=== PATIENT | female | born 1995 | race African-American/Black ===

== ENCOUNTER 2022-11-18 12:15 | Inpatient (IN) | payer OTHER ==
[2022-11-18] MEDS: ELECTROLYTE-148 SOLN 1,000 ML IV SCH ×2 (12:25→17:15)
[2022-11-18] MEDS: OXYTOCIN 30 UNITS in 0.9% NS 30 UNIT/500 ML INFUS.BAG IVPB SCH (13:30)
[2022-11-18] MEDS ORDERED: OXYTOCIN 30 UNITS in 0.9% NS 30 UNIT/500 ML INFUS.BAG IVPB ONE (13:30)
[2022-11-18 13:46] VITALS: BMI 34.0
[2022-11-18 13:54] LABS: BASO % 0.4 % (0-2.0); EOS % 0.3 % (0-4.5); HEMATOCRIT 36.2 % (32.4-45.2); HEMOGLOBIN 11.9 GM/dL (10.7-15.3); LYMPH % 11.4 % (8-40); MCH 29.4 pg (25.7-33.7); MCHC 32.9 g/dl (32.0-36.0); MEAN CELL VOLUME 89.4 fl (80-96); MEAN PLT VOLUME 10.7 fl (7.5-11.1); MONO % 7.1 % (3.8-10.2); NEUT % 80.8 % (42.8-82.8); PLATELET COUNT 215 10^3/uL (134-434); RBC 4.05 M/mm3 (3.60-5.2); RDW 15.9 % (11.6-15.6); RETICULOCYTES 2.63 % (0.5-1.5); WHITE BLOOD COUNT 14.2 K/mm3 (4.0-10.0)
[2022-11-18 14:00] LABS: INR 0.96 (0.83-1.09); PROTHROMBIN TIME (PATIENT) 11.1 SEC (9.7-13.0)
[2022-11-18 14:03] LABS: ACTIVATED PTT 24.9 SECONDS (25.2-36.5)
[2022-11-18] MEDS ORDERED: AMPICILLIN - 2 GM in SODIUM CHLORIDE 100 ML IVPB ONE (14:05)
[2022-11-18 14:14] LABS: ALBUMIN 2.8 g/dl (3.4-5.0); CALCIUM 9.2 mg/dL (8.5-10.1)
[2022-11-18 14:15] LABS: BLOOD UREA NITROGEN 9.1 mg/dL (7-18); GAMMA GLUTAMYL TRANSPEPTIDASE 24 U/L (5-85)
[2022-11-18 14:17] LABS: CREATININE 0.7 mg/dL (0.55-1.3); SGOT/AST 35 U/L (15-37); SGPT/ALT 28 U/L (13-61)
[2022-11-18] MEDS ORDERED: SODIUM CHLORIDE 100 ML IVPB ONE ×2 (14:17→18:16)
[2022-11-18] MEDS ORDERED: AMPICILLIN SODIUM 2 GM VIAL ONE (14:17)
[2022-11-18 14:19] LABS: BILIRUBIN,TOTAL 0.2 mg/dL (0.2-1); TOT PROT 6.4 g/dl (6.4-8.2)
[2022-11-18] MEDS ORDERED: NIFEdipine 10 MG CAPSULE (FP) ONE (14:40)
[2022-11-18] MEDS ORDERED: NIFEdipine 10 MG CAPSULE (FP) PO ONE (15:00)
[2022-11-18 15:10] LABS: HIV INTERPRETATION NEGATIVE (NEGATIVE)
[2022-11-18 15:33] LABS: EPI CELLS >36 /uL (0-25.1); HYALINE CASTS 10 /uL (0-3.1); PH,URINE 6.5 (5.0-8.0); URINE APPEARANCE CLOUDY; URINE BACTERIA 5101 /uL (0-1359); URINE BILIRUBIN NEGATIVE (NEGATIVE); URINE COLOR YELLOW; URINE GLUCOSE (UA) NEGATIVE (NEGATIVE); URINE KETONE NEGATIVE (NEGATIVE); URINE LEUK ESTERASE TRACE (NEGATIVE); URINE NITRITE NEGATIVE (NEGATIVE); URINE PROTEIN 2+ (NEGATIVE); URINE UROBILINOGEN 0.2 mg/dL (0.2-1.0); URINE WBC 276 /uL (0-25.8)
[2022-11-18] MEDS ORDERED: FENTANYL/BUPIVACAINE/NS/PF - PCEA - 50 ML DISP.SYRIN EP ONE (15:39)
[2022-11-18] MEDS ORDERED: BUPIVACAINE HCL/PF 0.25% (2.5MG/ML) 10 ML VIAL ONE (15:43)
[2022-11-18 16:04] LABS: URINE RBC 30.5 /uL (0-23.9)
[2022-11-18] MEDS ORDERED: NALOXONE HCL 0.4 MG/ML VIAL IVPUSH PRN (16:24)
[2022-11-18] MEDS ORDERED: FENTANYL/BUPIVACAINE/NS/PF - PCEA - 50 ML DISP.SYRIN EP SCH (16:30)
[2022-11-18] MEDS ORDERED: AMPICILLIN - 1 GM in SODIUM CHLORIDE 100 ML IVPB SCH (18:05)
[2022-11-18] MEDS ORDERED: AMPICILLIN SODIUM 1 GM VIAL ONE (18:16)
[2022-11-18] MEDS ORDERED: OXYTOCIN 20 UNITS in 0.9% NS 20 UNIT/1,000 ML INFUS.BAG IV ONE (19:07)
[2022-11-18] MEDS ORDERED: LIDOCAINE HCL 1% PRESERVATIVE FREE - 30ML VIAL ONE (19:07)
[2022-11-18] MEDS ORDERED: NIFEdipine E.R. 30 MG TABLET PO ONE (19:55)
[2022-11-18] MEDS ORDERED: WITCH HAZEL 50% (TUCKS) 40 PAD/JAR PAD TP PRN (19:58)
[2022-11-18] MEDS ORDERED: BENZOCAINE 28 GM HEMORRHOIDAL OINTMENT TP PRN (19:58)
[2022-11-18] MEDS ORDERED: BENZOCAINE 20% 57 GM BOTTLE TP PRN (19:58)
[2022-11-18] MEDS ORDERED: oxyCODONE HCL 5 MG TABLET PO PRN (19:58)
[2022-11-18] MEDS ORDERED: METHYLERGONOVINE MALEATE 0.2 MG/1 ML AMP IM PRN (19:58)
[2022-11-18] MEDS ORDERED: BISACODYL 10 MG SUPP.RECT RC PRN (19:58)
[2022-11-18] MEDS ORDERED: IBUPROFEN 600 MG TABLET (FP) PO PRN (19:58)
[2022-11-18] MEDS ORDERED: OXYTOCIN 20 UNITS in 0.9% NS 20 UNIT/1,000 ML INFUS.BAG IV SCH (20:00)
[2022-11-18] MEDS: NIFEdipine E.R. 30 MG TABLET PO SCH (20:00)
[2022-11-18] MEDS: LABETALOL HCL 200 MG TABLET (FP) PO SCH (22:01)
[2022-11-19 07:40] LABS: BASO % 0.2 % (0-2.0); EOS % 0.5 % (0-4.5); HEMATOCRIT 33.2 % (32.4-45.2); HEMOGLOBIN 11.1 GM/dL (10.7-15.3); LYMPH % 12.3 % (8-40); MCH 29.7 pg (25.7-33.7); MCHC 33.3 g/dl (32.0-36.0); MEAN CELL VOLUME 89.1 fl (80-96); MEAN PLT VOLUME 11.8 fl (7.5-11.1); MONO % 5.5 % (3.8-10.2); NEUT % 81.5 % (42.8-82.8); PLATELET COUNT 205 10^3/uL (134-434); RBC 3.73 M/mm3 (3.60-5.2); WHITE BLOOD COUNT 17.9 K/mm3 (4.0-10.0)
[2022-11-19] MEDS: FERROUS SO4 325 MG TABLET (FP) PO SCH ×3 (08:58→17:47)
[2022-11-19] MEDS: PRENATAL VITAMINS W/ FOLIC ACID TABLET (FP) PO SCH (10:52)
[2022-11-19] MEDS: NIFEdipine E.R. 30 MG TABLET PO SCH (10:52)
[2022-11-19] MEDS: LABETALOL HCL 200 MG TABLET (FP) PO SCH ×2 (10:53→21:10)
[2022-11-19] MEDS: ACETAMINOPHEN 325 MG TABLET (FP) PO PRN ×2 (17:47→21:10)
[2022-11-19] MEDS: OXYTOCIN 30 UNITS in 0.9% NS 30 UNIT/500 ML INFUS.BAG IVPB SCH (18:54)
[2022-11-19] MEDS ORDERED: SENNOSIDES/DOCUSATE COMBO (SENNA PLUS) TABLET (UD) PO PRN (22:00)
[2022-11-20] MEDS: FERROUS SO4 325 MG TABLET (FP) PO SCH ×2 (08:04→12:12)
[2022-11-20] MEDS: PRENATAL VITAMINS W/ FOLIC ACID TABLET (FP) PO SCH (09:47)
[2022-11-20] MEDS: NIFEdipine E.R. 30 MG TABLET PO SCH (09:47)
[2022-11-20] MEDS: LABETALOL HCL 200 MG TABLET (FP) PO SCH (09:48)
[2022-11-20 09:53] VITALS: BP 149/83; PULSE 103; RESP 17; TEMP 98.7
== END 2022-11-20 13:00 | disposition home or self-care (01) | DRG 560 ==
LOC: JLDR 12:15 → J3W 21:32
PROVIDERS: ADMIT Obstetrics & Gynecology; ATTEND Obstetrics & Gynecology
PROC: 10E0XZZ Delivery of Products of Conception, External Approach (ICD-10-PCS; principal; 2022-11-18)
DX: O69.1XX0 Labor and delivery complicated by cord around neck, with compression, not applicable or unspecified (principal); Z3A.37 37 weeks gestation of pregnancy; Z37.0 Single live birth
CPT/HCPCS: 36415; 80053; 81003; 82977; 83010; 84450; 84460; 84550; 85025; 85032; 85045; 85610; 85730; 86780; 86850; 86880; 86900; 86901; 87389; C9803-CS; U0003; U0005